=== PATIENT | male | born 1955 | race Caucasian/White ===

== ENCOUNTER 2023-06-01 07:52 | Inpatient (IN) ==
--- NOTE | 2023-06-01 08:12 | Emergency Department Note ---
Impression & Plan CHB (complete heart block), Aspiration pneumonia, Acute respiratory distress, Non-ST elevation CT (NSTEMI), Altered mental state ED Provider Note Diagnosis: Altered mental status, hypoxic respiratory distress, aspiration pneumonia, NSTEMI, complete heart block Disposition: Admission CHIEF COMPLAINT: Found down in person cell HPI: Patient 67-year-old male from local [place] [facility] found facedown in pool of vomit unresponsive. Unknown how long he was in this position. Patient unable to answer questions upon arrival in the emergency room. Patient placed on nonrebreather by EMS IV in place. Patient has ecchymosis to the left flank left mid axillary region. Patient upon review of prior records was here 1 month prior for similar episode found to be in complete heart block and had been refusing pacemaker as well as found to have a pneumothorax and sent for transfer to trauma service at [facility]. Patient has an advanced directive with him today and his paperwork that states he is a DNR/DNI. Patient's advanced directive states that he would not want any procedures performed any blood products given. Patient also listed that he would not want anybody else to make decisions for him. At this point in time with him not able to tell us anything different and with his wishes clearly stated we will uphold these wishes and continue to look for causes that we can treat with IV and with keeping with his medical wishes PAST MEDICAL HISTORY: See Below PAST SURGICAL HISTORY: See Below SOCIAL HISTORY: See Below HOME MEDICATIONS: See Below ALLERGIES: See Below VITALS: See Below PHYSICAL EXAMINATION: GENERAL: Severe distress EYE EXAM: Normal conjunctiva. OROPHARYNX: Moist mucus membranes. Grossly normal dentition. NECK: Supple, LUNGS: Clear to auscultation. Normal chest wall mechanics. HEART: Bradycardia ABDOMEN: Abdomen soft, bruising left mid axillary region ecchymosis present BACK: No step-offs present patient unable to participate in telling me if pain is present on palpation SKIN: Ecchymosis left flank left mid axillary region. UPPER EXTREMITIES: Upper extremities are grossly normal LOWER EXTREMITIES: Grossly normal, no edema. NEURO EXAM: A&O x3,, normal speech, moves all 4 extremities PSYCH: Cooperative MEDICAL DECISION MAKING: Reviewed external documents: Patient's [place] [facility] records and advanced directive History obtained from: EMS ER Course: Patient is a 67-year-old male presenting from [facility] found unresponsive facedown in vomit. Patient alert to painful stimuli but does not speak but moans moves extremities to pain. Patient on nonrebreather at 88%. Patient ordered BiPAP. Patient's advanced directive specifically states no intubation no CPR no procedures no blood products only IV interventions. Patient has been found to be in complete heart block for many years time and has continued to refuse pacemaker. Patient again 1 month ago refused pacemaker on paperwork found by Axel López discharge. At this point in time we will continue IV medications and looking for causes that can be reversed without invasive procedures. Will uphold his wishes at this time. He also stated on his advance directive he did not want anybody else to make decisions for him. Patient had CT scans of head neck chest abdomen pelvis. Patient has no traumatic injuries. Patient found to have aspiration pneumonia on chest CT with healing rib fractures from previous injury 1 month ago. Patient started on Zosyn. Patient found to have an elevated troponin. Patient continues to have complete heart block on EKG with stable blood pressure at this time. Patient was found to be hypoxic and placed on BiPAP tolerating it at this time. Patient continues to have altered mental status. Labs (independently interpreted) are significant for: Leukocytosis, elevated troponin Imaging results (independently interpreted): Opacity right lung field on chest x-ray EKG interpretation (independently interpreted): Complete heart block Medications given: Zosyn, normal saline bolus Consultants: Hospitalist service Triage Nursing notes reviewed and agree them. Vital Signs: reviewed and remarkable for: Hypoxia Critical care: 45 minutes Past Med/Surg History Medical History (Updated 06/01/23 @ 10:22 by Cheko Bolaños DO) CHB (complete heart block) Surgical History (Updated 06/01/23 @ 10:14 by Chantelle Mary PA-C) Hx of chest tube placement Family History Other Family history unobtainable Social History (Updated 06/01/23 @ 10:15 by Chantelle Mary PA-C) Smoking Status: Unknown if ever smoked Hx Alcohol Use: No Hx Substance Use: No Preferred Language: Paragu[place] Current Living Situation: Other Current Living Situation Comment: [place] Feels Safe at Home: Yes Allergies Allergies Allergy/AdvReac Type Severity Reaction Status Date / Time GRAINS Allergy Unknown ON SCI Uncoded 06/01/23 10:14 [facility] Home Meds Home Medications Medication Instructions Recorded Confirmed Therapeutic Tar Shampoo 1 applic topical [id number] 05/02/23 06/01/23 aspirin 81 mg chewable tablet 81 mg PO DAILY 05/02/23 06/01/23 azelastine 137 mcg (0.1 %) nasal 2 spray intranasal DAILY 05/02/23 06/01/23 spray aerosol calcium polycarbophil 625 mg 625 mg PO DAILY 05/02/23 06/01/23 tablet (Fiber-Lax) cholecalciferol (vitamin D3) 25 25 mcg PO DAILY 05/02/23 06/01/23 mcg (1,000 unit) capsule (Vitamin D3) propylene glycol 1 %-glycerin 0.3 1 drp OPB BID 05/02/23 06/01/23 % eye drops (Advanced Eye Relief) saliva stimulant comb. no.3 2 spray mucous membrane TID PRN 05/02/23 06/01/23 (Biotene Moisturizing Mouth Dry Mouth mucosal spray) docusate sodium 250 mg capsule 250 mg PO DAILY 06/01/23 06/01/23 lisinopril 20 mg tablet 20 mg PO DAILY 06/01/23 06/01/23 Results & Data (ED) Vital Signs Vital Signs - 24 hr 06/01/23 08:04 06/01/23 08:20 06/01/23 08:40 Temperature Source Rectal Pulse Rate 48 L 48 L 46 L Pulse Rate from SpO2 Sensor 46 L Pulse Rhythm Regular Regular Pulse Strength Normal Respiratory Rate 40 H 40 H 35 H Respiratory Effort / Characteristics Spontaneous Accessory Muscle Use Retracting Short of Breath Respiratory Depth Retractive Respiratory Pattern Tachypnea Blood Pressure 195/82 H 125/93 Blood Pressure Mean 119 103 Blood Pressure Position Sitting Pulse Oximetry 89 L 91 91 Oxygen Delivery Method Non-rebreather Non-rebreather Non-rebreather Oxygen Flow Rate 15 15 15 Sepsis Recent Fever Within 48 Hours No Sepsis New/Unexplained Change in Mental Status No Sepsis Action Taken by Nursing No Action Required 06/01/23 08:52 06/01/23 09:00 Temperature Source Pulse Rate 44 L 43 L Pulse Rate from SpO2 Sensor 43 L Pulse Rhythm Pulse Strength Respiratory Rate 26 H Respiratory Effort / Characteristics Respiratory Depth Respiratory Pattern Blood Pressure 125/57 L Blood Pressure Mean 79 Blood Pressure Position Pulse Oximetry 95 Oxygen Delivery Method BiPAP Oxygen Flow Rate Sepsis Recent Fever Within 48 Hours Sepsis New/Unexplained Change in Mental Status Sepsis Action Taken by Nursing Laboratory Data 06/01/23 08:04 06/01/23 08:04 Lab Results 06/01/23 06/01/23 Range/Units 08:04 08:08 WBC 20.31 H (4.8-10.8) K/ul RBC 4.91 (4.70-6.10) M/uL Hgb 14.2 (14.0-18.0) g/dl POC Hgb 15.0 (14.0-18.0) g/dl Hct 44.5 (42.0-52.0) % POC Hct 44 (42-52) % MCV 90.6 (80.0-100.0) fL MCH 28.9 (25.0-34.0) pg MCHC 31.9 L (32.0-36.0) g/dL RDW Std Deviation 47.8 H (36.4-46.3) fL RDW Coeff of Scooby 14.3 (11.5-14.5) % Plt Count 453 H (130-400) K/uL MPV 11.2 (9.4-12.4) fL Immature Gran % (Auto) 0.6 % Neut % (Auto) 87.6 % Lymph % (Auto) 4.2 % [place] % (Auto) 7.2 % Eos % (Auto) 0.1 % Baso % (Auto) 0.3 % Neut # (Auto) 17.76 H (1.40-6.50) K/uL Lymph # (Auto) 0.85 L (1.20-3.40) K/uL [place] # (Auto) 1.47 H (0.11-0.59) K/uL Eos # (Auto) 0.03 (0.00-0.50) K/uL Baso # (Auto) 0.07 (0.00-0.20) K/uL Immature Gran # (Auto) 0.13 (0.01-0.20) K/uL PT 11.9 (9.0-12.0) Seconds INR 1.1 (0.9-1.1) POC Sodium 140 (135-144) mmol/L Sodium 137 (136-145) mmol/L POC Potassium 4.4 (3.3-5.0) mmol/L Potassium 4.7 (3.5-5.1) mmol/L POC Chloride 105 (101-112) mmol/L Chloride 104 (98-107) mmol/L Carbon Dioxide 20 L (21-32) mmol/L POC Total CO2 23 L (24-31) mmol/L Anion Gap 13 H (3-11) POC Anion Gap 18.0 (16-25) mmol/L POC BUN 25 H (7-18) mg/dl BUN 26 H (6-23) mg/dl Creatinine 0.79 (0.6-1.4) mg/dl POC Creatinine 0.7 (0.6-1.3) mg/dl Est Cr Clr Drug Dosing Not Reportable Est GFR ( Amer) 106.2 ml/min Est GFR (Non-Af Amer) 91.6 ml/min BUN/Creatinine Ratio 32.9 H (10-20) Glucose 222 H (70-99(Fasting)) mg/dl POC Glucose (other) 215 H (70-99) mg/dl Calcium 9.2 (8.6-10.3) mg/dl POC Ioniz Calcium Margaret 1.16 (1.12-1.32) mmol/l Total Bilirubin 0.5 (0.2-1.0) mg/dl AST 26 (13-39) U/L ALT 21 (7-52) U/L Alkaline Phosphatase 104 (34-104) U/L Troponin I High Sens 300.1 H* (0-20) pg/ml Total Protein 7.6 (6.0-8.3) gm/dl Albumin 3.8 (3.4-5.0) gm/dl Globulin 3.8 (2.5-4.0) gm/dl Albumin/Globulin Ratio 1.0 (0.9-2) Administered Medications Discontinued Medications Sodium Chloride (Nss) 500 mls @ 999 mls/hr IV .Q31M SERGIO Stop: 06/01/23 08:45 Last Infusion: 06/01/23 09:57 Dose: Infused Documented By: Admin: 06/01/23 08:50 Dose: 500 mls/hr Documented By: NOEMI Piperacillin Sod/Tazobactam Sod (Zosyn) 4.5 gm in 100 mls @ 200 mls/hr IV NOW ONE Stop: 06/01/23 09:27 Last Infusion: 06/01/23 09:57 Dose: Infused Documented By: Admin: 06/01/23 09:16 Dose: 200 mls/hr Documented By: NOEMI Ioversol (Optiray 320 500ml) 94 ml IV ONCE ONE Stop: 06/01/23 08:32 Last Admin: 06/01/23 08:31 Dose: 94 ml Documented By: CLAY Imaging Data Radiologist's Impression: Abdomen/Pelvis CT 06/01/23 08:06 CT SCAN OF THE ABDOMEN AND PELVIS WITH IV CONTRAST CLINICAL HISTORY: Trauma. COMPARISON STUDY: Chest CT dated 05/02/2023. TECHNIQUE: Following the IV administration of 94 cc of Optiray 320, CT scan of the abdomen and pelvis is performed from the lung bases to the proximal femora. Images are reviewed in the axial, sagittal, and coronal planes. IV contrast was administered without complication. A dose lowering technique was utilized adhering to the principles of ALARA. The examination is degraded by motion artifact, as well as by streak artifact from the arms which could not be elevated above the abdomen. CT DOSE: 3566.05 mGy.cm FINDINGS: Lung bases: The heart is mildly enlarged and without pericardial effusion. Airspace consolidation is seen throughout the right lung. There is a loculated pleural collection at the left lung base with left basilar consolidation. Liver: The contrast-enhanced liver is normal in size, contour, and attenuation. There is no intrahepatic biliary ductal dilatation. The hepatic veins and portal veins are patent. Gallbladder: Surgically absent noting clips in the gallbladder fossa. Spleen: Normal in size and attenuation. Pancreas: Mildly atrophic and grossly unremarkable. Adrenal glands: Unremarkable. Kidneys: The contrast enhanced kidneys are normal in size and without hydronephrosis. The kidneys enhance symmetrically. Bilateral renal cysts measure up to 4.2 cm. Abdominal vasculature: The abdominal aorta is normal in course and caliber. Bowel: There is rectosigmoid fecal retention and mild to moderate constipation. No bowel obstruction is seen. A nonobstructed segment of the sigmoid colon is contained within a left inguinal hernia. The appendix is not visualized. Peritoneum: There is no intraperitoneal free air or abdominal ascites. Lymphadenopathy: None. Pelvic viscera: The bladder is mildly distended but otherwise normal appearance. The prostate is normal as visualized. There are left larger than right inguinal hernias. The left inguinal hernia contains a nonobstructed segment of bowel in the right inguinal hernia contains a segment of the bladder. Skeletal structures: The skeletal structures are osteopenic. There is moderate lumbosacral spondylosis. Degenerative change is noted in the sacroiliac joints. There is a subacute/healing inferior endplate compression deformity of T10. There are subacute/healing left-sided rib fractures. No lytic or blastic lesions are seen. IMPRESSION: 1. There is no evidence of solid organ injury in the abdomen or pelvis. 2. Airspace consolidation in the right lower lobe is typical for pneumonia/aspiration pneumonitis. Clinical correlation will be required and radiographic follow-up to resolution is recommended. 3. A loculated pleural effusion/collection at the left lung base has decreased in size from 05/02/2023. 4. Bilateral bowel and bladder-containing inguinal hernias as above. 5. Subacute fractures of T10 and the left-sided ribs as above. 6. Additional findings as above. ACT 112: Negative or not required by law. Electronically signed by: Abdullahi Borges M.D. 06/01/2023 9:[address] 06/01/23 08:[address] DOSE: HISTORY: Trauma TECHNIQUE: Multiaxial CT images of the cervical spine were performed and reformatted in the sagittal and coronal plane without the use of contrast. A dose lowering technique was utilized adhering to the principles of ALARA. COMPARISON: Cervical spine CT 05/02/2023. FINDINGS: No fractures. No subluxation. Prevertebral soft tissues and the C1-C2 interval are intact. No pneumothorax. Partial opacification of the right mastoid air cells. Degenerative changes again noted. IMPRESSION: No fractures within the cervical spine. ACT 112: Negative or not required by law. Electronically signed by: Javier Su M.D. 06/01/2023 8:[address] 06/01/23 08:[address] WITH CONTRAST CT DOSE: HISTORY: Trauma TECHNIQUE: Multiaxial CT images of the chest were performed following the intravenous administration of contrast. A dose lowering technique was utilized adhering to the principles of ALARA. COMPARISON: Chest CT 05/02/2023. FINDINGS: Subtle band of sclerosis through the inferior plate of T10 which is new compared to the prior study and likely represents a subacute/healing compression fracture. No significant loss of height at this time. There is a healing nondisplaced left T12 transverse process fracture. There are healing mildly displaced left posterior eighth through 11th rib fractures. No acute fractures identified. There is respiratory motion artifact resulting in suboptimal evaluation. The central airways appear patent. No pneumothorax. No right pleural effusion. There is a partially loculated small left pleural effusion which is decreased in size in the interval. Linear densities within the left lower lobe favor compressive atelectasis from the pleural effusion. There is interlobular septal thickening with patchy airspace opacities within the right lung. This favors a pneumonia and could be due to aspiration. Asymmetric pulmonary edema could also have a similar appearance. Abdominal structures will be reported separately. Normal esophagus. The thyroid gland enhances normally. No lymphadenopathy within the chest. No pericardial effusion. The heart remains enlarged. No evidence for an aortic dissection. The main pulmonary arteries are patent. The ascending thoracic aorta measuring up to 4 cm in diameter. IMPRESSION: 1. Multiple healing left-sided rib fractures and a healing inferior endplate compression fracture at T10. No acute fractures identified. 2. Decrease in size in the partially loculated small left pleural effusion. 3. No pneumothorax. 4. Interval development of interlobular septal thickening and patchy airspace opacities within the right lung. This favors a pneumonia and could be due to aspiration. Asymmetric pulmonary edema could also have a similar appearance. 5. Additional findings as described above. ACT 112: Negative or not required by law. Electronically signed by: Javier Su M.D. 06/01/2023 9:[address] 06/01/23 08:06 CT SCAN OF THE BRAIN WITHOUT IV CONTRAST CLINICAL HISTORY: Trauma. COMPARISON STUDY: CT of the brain dated 05/02/2023. TECHNIQUE: Unenhanced axial CT scan of the brain is performed from the vertex to the skull base. A dose lowering technique was utilized adhering to the principles of ALARA. FINDINGS: Brain parenchyma: There is minimal microangiopathic change. There is no hemorrhage, mass effect, or evidence of acute territorial ischemia by CT criteria. Ba-white matter differentiation is preserved. No extra-axial fluid collection is seen. Ventricles, sulci, cisterns: Normal in configuration. Intracranial vasculature: There is atherosclerotic calcification of the cavernous carotid arteries. Calvarium: There is no depressed calvarial fracture. Sinuses and mastoids: There is trace mucosal thickening in the left sphenoid sinus. The remaining visualized paranasal sinuses are clear. There are right larger than left mastoid effusions. Orbits: The bony orbits are grossly intact. IMPRESSION: There is no hemorrhage, mass effect, or evidence of acute territorial ischemia by CT criteria. ACT 112: Negative or not required by law. Electronically signed by: Abdullahi Borges M.D. 06/01/2023 8:44 AM Chest X-Ray 06/01/23 08:07 XR chest 1V portable HISTORY: Hypoxia COMPARISON: Chest 05/03/2023. FINDINGS: No pneumothorax. The heart is unenlarged. There is interstitial thickening with right patchy airspace opacities. This may represent pulmonary edema or an atypical pneumonia. There is a small left pleural effusion which is increased in size. Left basilar densities again noted. IMPRESSION: 1. Cardiomegaly and a small left pleural effusion. This has slightly increased in size. 2. Interstitial thickening and patchy right lung airspace opacities. This may represent asymmetric pulmonary edema or a pneumonia. ACT 112: Negative or not required by law. Electronically signed by: Javier Su M.D. 06/01/2023 8:36 AM Discharge Plan Visit Data Chief Complaint: Fall Stated Complaint: FALL, HYPOXIA, BRADYCARDIA ED Provider: Cheko Bolaños Discharge Problem: CHB (complete heart block), Aspiration pneumonia, Acute respiratory distress, Non-ST elevation CT (NSTEMI), Altered mental state
[2023-06-01 08:22] LABS: Basophils # (auto) 0.07 K/uL (0.00-0.20); Basophils % (auto) 0.3 %; Eosinophils # (auto) 0.03 K/uL (0.00-0.50); Eosinophils % (auto) 0.1 %; Hematocrit (blood only) 44.5 % (42.0-52.0); Hemoglobin 14.2 g/dl (14.0-18.0); Immature Granulocytes # (auto) 0.13 K/uL (0.01-0.20); Immature Granulocytes % (auto) 0.6 %; Lymphocytes # (auto) 0.85 K/uL (1.20-3.40); Lymphocytes % (auto) 4.2 %; Mean Corpuscular Hemoglobin 28.9 pg (25.0-34.0); Mean Corpuscular Hgb Conc 31.9 g/dL (32.0-36.0); Mean Corpuscular Volume 90.6 fL (80.0-100.0); Mean Platelet Volume 11.2 fL (9.4-12.4); Monocytes # (auto) 1.47 K/uL (0.11-0.59); Monocytes % (auto) 7.2 %; Neutrophils # (auto) 17.76 K/uL (1.40-6.50); Neutrophils % (auto) 87.6 %; Platelet Count 453 K/uL (130-400); RDW Coefficient of Variation 14.3 % (11.5-14.5); RDW Standard Deviation 47.8 fL (36.4-46.3); Red Blood Count 4.91 M/uL (4.70-6.10); White Blood Count 20.31 K/ul (4.8-10.8)
[2023-06-01 08:24] LABS: iSTAT Creatinine 0.7 mg/dl (0.6-1.3); iSTAT Ionized Calcium 1.16 mmol/l (1.12-1.32); iSTAT Potassium 4.4 mmol/L (3.3-5.0)
[2023-06-01] MEDS: OPTIRAY 320 500ml IV ONE (08:31)
--- NOTE | 2023-06-01 08:38 | XRay Report ---
XR chest 1V portable HISTORY: Hypoxia COMPARISON: Chest 05/03/2023. FINDINGS: No pneumothorax. The heart is unenlarged. There is interstitial thickening with right patch y airspace opacities. This may represent pulmonary edema or an atypical pneumonia. There is a small l eft pleural effusion which is increased in size. Left basilar densities again noted. IMPRESSION: 1. Cardiomegaly and a small left pleural effusion. This has slightly increased in size. 2. Interstitial thickening and patchy right lung airspace opacities. This may represent asymmetric pu lmonary edema or a pneumonia. ACT 112: Negative or not required by law. Electronically signed by: Javier Su M.D. 06/01/2023 8:36 AM
[2023-06-01 08:41] LABS: Alanine Aminotransferase 21 U/L (7-52); Albumin Level 3.8 gm/dl (3.4-5.0); Alkaline Phosphatase 104 U/L (34-104); Anion Gap 13 (3-11); Aspartate Aminotransferase 26 U/L (13-39); BUN Creatinine Ratio 32.9 (10-20); Bilirubin,Total 0.5 mg/dl (0.2-1.0); Blood Urea Nitrogen 26 mg/dl (6-23); Calcium 9.2 mg/dl (8.6-10.3); Carbon Dioxide 20 mmol/L (21-32); Chloride 104 mmol/L (98-107); Est GFR (African American) 106.2 ml/min; Est GFR (Non-African American) 91.6 ml/min; Globulin 3.8 gm/dl (2.5-4.0); Glucose 222 mg/dl (70-99(Fasting)); Potassium 4.7 mmol/L (3.5-5.1); Sodium 137 mmol/L (136-145); Total Protein 7.6 gm/dl (6.0-8.3)
--- NOTE | 2023-06-01 08:45 | CT Scan Report ---
CT SCAN OF THE BRAIN WITHOUT IV CONTRAST CLINICAL HISTORY: Trauma. COMPARISON STUDY: CT of the brain dated 05/02/2023. TECHNIQUE: Unenhanced axial CT scan of the brain is performed from the vertex to the skull base. A d ose lowering technique was utilized adhering to the principles of ALARA. FINDINGS: Brain parenchyma: There is minimal microangiopathic change. There is no hemorrhage, mass effect, or e vidence of acute territorial ischemia by CT criteria. Ba-white matter differentiation is preserved. No extra-axial fluid collection is seen. Ventricles, sulci, cisterns: Normal in configuration. Intracranial vasculature: There is atherosclerotic calcification of the cavernous carotid arteries. Calvarium: There is no depressed calvarial fracture. Sinuses and mastoids: There is trace mucosal thickening in the left sphenoid sinus. The remaining vis ualized paranasal sinuses are clear. There are right larger than left mastoid effusions. Orbits: The bony orbits are grossly intact. IMPRESSION: There is no hemorrhage, mass effect, or evidence of acute territorial ischemia by CT rahul jimenez. ACT 112: Negative or not required by law. Electronically signed by: Abdullahi Borges M.D. 06/01/2023 8:44 AM
--- NOTE | 2023-06-01 08:49 | CT Scan Report ---
CERVICAL SPINE CT CT DOSE: HISTORY: Trauma TECHNIQUE: Multiaxial CT images of the cervical spine were performed and reformatted in the sagittal and coronal plane without the use of contrast. A dose lowering technique was utilized adhering to th e principles of ALARA. COMPARISON: Cervical spine CT 05/02/2023. FINDINGS: No fractures. No subluxation. Prevertebral soft tissues and the C1-C2 interval are intact. No pneumothorax. Partial opacification of the right mastoid air cells. Degenerative changes again not ed. IMPRESSION: No fractures within the cervical spine. ACT 112: Negative or not required by law. Electronically signed by: Javier Su M.D. 06/01/2023 8:48 AM
[2023-06-01] MEDS: SODIUM CHLORIDE 0.9% 500 ML IV SCH (08:50)
[2023-06-01 08:51] LABS: INR 1.1 (0.9-1.1); Prothrombin Time 11.9 Seconds (9.0-12.0)
--- NOTE | 2023-06-01 09:03 | CT Scan Report ---
CHEST CT WITH CONTRAST CT DOSE: HISTORY: Trauma TECHNIQUE: Multiaxial CT images of the chest were performed following the intravenous administration of contrast. A dose lowering technique was utilized adhering to the principles of ALARA. COMPARISON: Chest CT 05/02/2023. FINDINGS: Subtle band of sclerosis through the inferior plate of T10 which is new compared to the hong or study and likely represents a subacute/healing compression fracture. No significant loss of height at this time. There is a healing nondisplaced left T12 transverse process fracture. There are healin g mildly displaced left posterior eighth through 11th rib fractures. No acute fractures identified. T here is respiratory motion artifact resulting in suboptimal evaluation. The central airways appear pa tent. No pneumothorax. No right pleural effusion. There is a partially loculated small left pleural e ffusion which is decreased in size in the interval. Linear densities within the left lower lobe favor compressive atelectasis from the pleural effusion. There is interlobular septal thickening with patc hy airspace opacities within the right lung. This favors a pneumonia and could be due to aspiration. Asymmetric pulmonary edema could also have a similar appearance. Abdominal structures will be reporte d separately. Normal esophagus. The thyroid gland enhances normally. No lymphadenopathy within the ch est. No pericardial effusion. The heart remains enlarged. No evidence for an aortic dissection. The m ain pulmonary arteries are patent. The ascending thoracic aorta measuring up to 4 cm in diameter. IMPRESSION: 1. Multiple healing left-sided rib fractures and a healing inferior endplate compression fracture at T10. No acute fractures identified. 2. Decrease in size in the partially loculated small left pleural effusion. 3. No pneumothorax. 4. Interval development of interlobular septal thickening and patchy airspace opacities within the ri ght lung. This favors a pneumonia and could be due to aspiration. Asymmetric pulmonary edema could al so have a similar appearance. 5. Additional findings as described above. ACT 112: Negative or not required by law. Electronically signed by: Javier Su M.D. 06/01/2023 9:01 AM
[2023-06-01] MEDS: PIPERACILLIN/TAZOBACTAM 4.5 GM/100 ML BAG IV ONE (09:16)
--- NOTE | 2023-06-01 09:16 | CT Scan Report ---
CT SCAN OF THE ABDOMEN AND PELVIS WITH IV CONTRAST CLINICAL HISTORY: Trauma. COMPARISON STUDY: Chest CT dated 05/02/2023. TECHNIQUE: Following the IV administration of 94 cc of Optiray 320, CT scan of the abdomen and pelvi s is performed from the lung bases to the proximal femora. Images are reviewed in the axial, sagittal , and coronal planes. IV contrast was administered without complication. A dose lowering technique wa s utilized adhering to the principles of ALARA. The examination is degraded by motion artifact, as we ll as by streak artifact from the arms which could not be elevated above the abdomen. CT DOSE: 3566.05 mGy.cm FINDINGS: Lung bases: The heart is mildly enlarged and without pericardial effusion. Airspace consolidation is seen throughout the right lung. There is a loculated pleural collection at the left lung base with le ft basilar consolidation. Liver: The contrast-enhanced liver is normal in size, contour, and attenuation. There is no intrahepa tic biliary ductal dilatation. The hepatic veins and portal veins are patent. Gallbladder: Surgically absent noting clips in the gallbladder fossa. Spleen: Normal in size and attenuation. Pancreas: Mildly atrophic and grossly unremarkable. Adrenal glands: Unremarkable. Kidneys: The contrast enhanced kidneys are normal in size and without hydronephrosis. The kidneys enh ance symmetrically. Bilateral renal cysts measure up to 4.2 cm. Abdominal vasculature: The abdominal aorta is normal in course and caliber. Bowel: There is rectosigmoid fecal retention and mild to moderate constipation. No bowel obstruction is seen. A nonobstructed segment of the sigmoid colon is contained within a left inguinal hernia. The appendix is not visualized. Peritoneum: There is no intraperitoneal free air or abdominal ascites. Lymphadenopathy: None. Pelvic viscera: The bladder is mildly distended but otherwise normal appearance. The prostate is norm al as visualized. There are left larger than right inguinal hernias. The left inguinal hernia contain s a nonobstructed segment of bowel in the right inguinal hernia contains a segment of the bladder. Skeletal structures: The skeletal structures are osteopenic. There is moderate lumbosacral spondylosi s. Degenerative change is noted in the sacroiliac joints. There is a subacute/healing inferior endpla te compression deformity of T10. There are subacute/healing left-sided rib fractures. No lytic or janette stic lesions are seen. IMPRESSION: 1. There is no evidence of solid organ injury in the abdomen or pelvis. 2. Airspace consolidation in the right lower lobe is typical for pneumonia/aspiration pneumonitis. Cl inical correlation will be required and radiographic follow-up to resolution is recommended. 3. A loculated pleural effusion/collection at the left lung base has decreased in size from 05/02/2023 . 4. Bilateral bowel and bladder-containing inguinal hernias as above. 5. Subacute fractures of T10 and the left-sided ribs as above. 6. Additional findings as above. ACT 112: Negative or not required by law. Electronically signed by: Abdullahi Borges M.D. 06/01/2023 9:14 AM
[2023-06-01 09:17] LABS: Troponin I High Sensitivity 300.1 pg/ml (0-20)
[2023-06-01] MEDS ORDERED: CARBOHYDRATES FOR HYPOGLYCEMIA PO PRN (10:22)
[2023-06-01] MEDS ORDERED: DEXTROSE 50% 50 ML SYRINGE IV PRN (10:22)
[2023-06-01] MEDS ORDERED: GLUCOSE 40% GEL 15 GM TUBE PO PRN (10:22)
[2023-06-01] MEDS ORDERED: GLUCOSE 10 TAB/TUBE PO PRN (10:22)
[2023-06-01] MEDS ORDERED: GLUCAGON FOR INJ 1 MG VIAL SQ PRN (10:22)
[2023-06-01] MEDS ORDERED: ONDANSETRON INJ 2 MG/ML 2 ML VIAL IV PRN (10:22)
--- NOTE | 2023-06-01 10:31 | History & Physical Report ---
Date of Service June 01, 2023 Assessment & Plan (1) Acute hypoxic respiratory failure: (2) Sepsis: (3) Aspiration pneumonia: (4) Metabolic encephalopathy: (5) Hyperglycemia: (6) Elevated troponin: (7) DNI (do not intubate): Plan 67 yr old incarcerated male being managed for the following: Acute hypoxic respiratory failure Sepsis Aspiration Pneumonia Metabolic encephalopathy admit to PCU continue IV Zosyn BIPAP for respiratory support, pt DNR/DNI will consult palliative to assist with goals of care IVF LR 100cc/hr will keep NPO until pt would become more alert aspiration precautions NSTEMI repeat @ 2hrs is 731.4, initially 300 will cycle q6 pt does not report CP likely demand in setting of sepsis, resp failure will repeat ecg, obtain echo, consult cardiology start IV heparin, pt does not want any life saving procedures per advanced directive appreciate palliative input regarding role of heparin in setting of his advance directives, will continue for now until able to communicate with patient Hyperglycemia admitting bsg in 200s no hx of t2dm recorded obtain a1c in a.m. will monitor accuchecks ac/hs for now, will not implement sliding scale at this time unless consistently elevated DNR/DNI pt presents with specific advance directive stating DNR/DNI ok with IV fluids/antibiotics He is the only one able to make decisions currently not able to make appropriate decisions, will carry out his wishes with DNI consult palliative care Complete Heart Block pt with known heart block presents with syncope in past, declines PPM recently eval by cards at [facility], declined will monitor on tele at this time pt does not wish for life saving medications per custodial records appears pt is on lisinopril - will hold DVT ppx: Heparin IV DNR/DNI Dispo: admit to PCU Pt was seen and examined in collaboration with Dr. Willis, please see addendum A total of 76 minutes was spent coordinating, documenting, and providing care for this patient excluding time spent in the performance of separately billed services. This included personally viewing all current laboratories and imaging studies, medication reconciliation, outpatient chart review, and discussion with specialists. History of Present Illness Chief Complaint: Unresponsive prior to arrival Primary Care Provider: ZOILA Toro This is a 67 yr old incarcerated M who presents to ED after being found unresponsive at custodial surrounded by pool of vomit. Hx obtained from pre hospital paperwork and ED provider. Of significance pt recently hospitaled 05/02 at [facility] after being initially evaluated at [facility] 2/2 syncope, fall, L rib fractures, L hemothorax s/p chest tube placement. He was seen in [facility] and remained stable. CT was removed prior to d/c. He has a known CHB that he has refused PPM. This was evident from hospital discharge paperwork from [facility] as he refused a pacer at that time. Pt has specific advanced directive in paperwork stating he is a DNR/DNI and he does not want any mechanical ventilation/procedure/tube feeds. He is ok with IVF and IV antibiotics. When he presented to ED today he was unresponsive and significant hypoxic despite non rebreather. A bipap was placed. Imaging concerning for an aspiration pneumonia. He was started on IV Zosyn and IVF. At beside pt was able to open eyes and answer simple questions. He states he passed out which caused him to fall. This is why he presented to ED previously in setting of syncope. ROS otherwise unobtainable. Nursing reports kiley abnormality to L tibial surface. Guards at bedside unable to provide any additional information. Allergies Allergy/AdvReac Type Severity Reaction Status Date / Time GRAINS Allergy Unknown ON SCI Uncoded 06/01/23 10:14 [facility] [employer] LIST Home Medications Medication Instructions Recorded Confirmed Type Therapeutic Tar Shampoo 1 applic topical [id number] 05/02/23 06/01/23 History aspirin 81 mg chewable tablet 81 mg PO DAILY 05/02/23 06/01/23 History azelastine 137 mcg (0.1 %) nasal 2 spray intranasal DAILY 05/02/23 06/01/23 History spray aerosol calcium polycarbophil 625 mg 625 mg PO DAILY 05/02/23 06/01/23 History tablet (Fiber-Lax) cholecalciferol (vitamin D3) 25 25 mcg PO DAILY 05/02/23 06/01/23 History mcg (1,000 unit) capsule (Vitamin D3) propylene glycol 1 %-glycerin 0.3 1 drp OPB BID 05/02/23 06/01/23 History % eye drops (Advanced Eye Relief) saliva stimulant comb. no.3 2 spray mucous membrane TID PRN 05/02/23 06/01/23 History (Biotene Moisturizing Mouth Dry Mouth mucosal spray) docusate sodium 250 mg capsule 250 mg PO DAILY 06/01/23 06/01/23 History lisinopril 20 mg tablet 20 mg PO DAILY 06/01/23 06/01/23 History Past Med/Surg History Medical History (Updated 06/01/23 @ 18:53 by Marcia Monson DNP) Encounter for end of life care Palliative care by specialist Advanced care planning/counseling discussion Weakness generalized Anxiety about dying Dyspnea and respiratory abnormalities CHB (complete heart block) Surgical History Hx of chest tube placement Family History Other Family history unobtainable Social History (Updated 06/01/23 @ 10:15 by Chantelle Mary PA-C) Smoking Status: Unknown if ever smoked Hx Alcohol Use: No Hx Substance Use: No Preferred Language: Lithuanian Communication Ability: Effective 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 Willis addendum for physical exam findings Results & Data Results & Data Vital Signs (Past 12 Hours) Vital Signs Pulse Resp BP Pulse Ox O2 Del Method O2 Flow Rate 06/01/23 09:00 43 L 26 H 125/57 L 95 BiPAP 06/01/23 08:52 44 L 06/01/23 08:40 46 L 35 H 125/93 91 Non-rebreather 15 06/01/23 08:20 48 L 40 H 91 Non-rebreather 15 06/01/23 08:04 48 L 40 H 195/82 H 89 L Non-rebreather 15 Diagnostic Findings Abdomen/Pelvis CT 06/01/23 08:06 CT SCAN OF THE ABDOMEN AND PELVIS WITH IV CONTRAST CLINICAL HISTORY: Trauma. COMPARISON STUDY: Chest CT dated 05/02/2023. TECHNIQUE: Following the IV administration of 94 cc of Optiray 320, CT scan of the abdomen and pelvis is performed from the lung bases to the proximal femora. Images are reviewed in the axial, sagittal, and coronal planes. IV contrast was administered without complication. A dose lowering technique was utilized adhering to the principles of ALARA. The examination is degraded by motion artifact, as well as by streak artifact from the arms which could not be elevated above the abdomen. CT DOSE: 3566.05 mGy.cm FINDINGS: Lung bases: The heart is mildly enlarged and without pericardial effusion. Airspace consolidation is seen throughout the right lung. There is a loculated pleural collection at the left lung base with left basilar consolidation. Liver: The contrast-enhanced liver is normal in size, contour, and attenuation. There is no intrahepatic biliary ductal dilatation. The hepatic veins and portal veins are patent. Gallbladder: Surgically absent noting clips in the gallbladder fossa. Spleen: Normal in size and attenuation. Pancreas: Mildly atrophic and grossly unremarkable. Adrenal glands: Unremarkable. Kidneys: The contrast enhanced kidneys are normal in size and without hydronephrosis. The kidneys enhance symmetrically. Bilateral renal cysts measure up to 4.2 cm. Abdominal vasculature: The abdominal aorta is normal in course and caliber. Bowel: There is rectosigmoid fecal retention and mild to moderate constipation. No bowel obstruction is seen. A nonobstructed segment of the sigmoid colon is contained within a left inguinal hernia. The appendix is not visualized. Peritoneum: There is no intraperitoneal free air or abdominal ascites. Lymphadenopathy: None. Pelvic viscera: The bladder is mildly distended but otherwise normal appearance. The prostate is normal as visualized. There are left larger than right inguinal hernias. The left inguinal hernia contains a nonobstructed segment of bowel in the right inguinal hernia contains a segment of the bladder. Skeletal structures: The skeletal structures are osteopenic. There is moderate lumbosacral spondylosis. Degenerative change is noted in the sacroiliac joints. There is a subacute/healing inferior endplate compression deformity of T10. There are subacute/healing left-sided rib fractures. No lytic or blastic lesions are seen. IMPRESSION: 1. There is no evidence of solid organ injury in the abdomen or pelvis. 2. Airspace consolidation in the right lower lobe is typical for pneumonia/aspiration pneumonitis. Clinical correlation will be required and radiographic follow-up to resolution is recommended. 3. A loculated pleural effusion/collection at the left lung base has decreased in size from 05/02/2023. 4. Bilateral bowel and bladder-containing inguinal hernias as above. 5. Subacute fractures of T10 and the left-sided ribs as above. 6. Additional findings as above. ACT 112: Negative or not required by law. Electronically signed by: Abdullahi Borges M.D. 06/01/2023 9:[address] 06/01/23 08:[address] DOSE: HISTORY: Trauma TECHNIQUE: Multiaxial CT images of the cervical spine were performed and reformatted in the sagittal and coronal plane without the use of contrast. A dose lowering technique was utilized adhering to the principles of ALARA. COMPARISON: Cervical spine CT 05/02/2023. FINDINGS: No fractures. No subluxation. Prevertebral soft tissues and the C1-C2 interval are intact. No pneumothorax. Partial opacification of the right mastoid air cells. Degenerative changes again noted. IMPRESSION: No fractures within the cervical spine. ACT 112: Negative or not required by law. Electronically signed by: Javier Su M.D. 06/01/2023 8:[address] 06/01/23 08:[address] WITH CONTRAST CT DOSE: HISTORY: Trauma TECHNIQUE: Multiaxial CT images of the chest were performed following the intravenous administration of contrast. A dose lowering technique was utilized adhering to the principles of ALARA. COMPARISON: Chest CT 05/02/2023. FINDINGS: Subtle band of sclerosis through the inferior plate of T10 which is new compared to the prior study and likely represents a subacute/healing compression fracture. No significant loss of height at this time. There is a healing nondisplaced left T12 transverse process fracture. There are healing mildly displaced left posterior eighth through 11th rib fractures. No acute fractures identified. There is respiratory motion artifact resulting in suboptimal evaluation. The central airways appear patent. No pneumothorax. No right pleural effusion. There is a partially loculated small left pleural effusion which is decreased in size in the interval. Linear densities within the left lower lobe favor compressive atelectasis from the pleural effusion. There is interlobular septal thickening with patchy airspace opacities within the right lung. This favors a pneumonia and could be due to aspiration. Asymmetric pulmonary edema could also have a similar appearance. Abdominal structures will be reported separately. Normal esophagus. The thyroid gland enhances normally. No lymphadenopathy within the chest. No pericardial effusion. The heart remains enlarged. No evidence for an aortic dissection. The main pulmonary arteries are patent. The ascending thoracic aorta measuring up to 4 cm in diameter. IMPRESSION: 1. Multiple healing left-sided rib fractures and a healing inferior endplate compression fracture at T10. No acute fractures identified. 2. Decrease in size in the partially loculated small left pleural effusion. 3. No pneumothorax. 4. Interval development of interlobular septal thickening and patchy airspace opacities within the right lung. This favors a pneumonia and could be due to aspiration. Asymmetric pulmonary edema could also have a similar appearance. 5. Additional findings as described above. ACT 112: Negative or not required by law. Electronically signed by: Javier Su M.D. 06/01/2023 9:[address] 06/01/23 08:06 CT SCAN OF THE BRAIN WITHOUT IV CONTRAST CLINICAL HISTORY: Trauma. COMPARISON STUDY: CT of the brain dated 05/02/2023. TECHNIQUE: Unenhanced axial CT scan of the brain is performed from the vertex to the skull base. A dose lowering technique was utilized adhering to the principles of ALARA. FINDINGS: Brain parenchyma: There is minimal microangiopathic change. There is no hemorrhage, mass effect, or evidence of acute territorial ischemia by CT criteria. Ba-white matter differentiation is preserved. No extra-axial fluid collection is seen. Ventricles, sulci, cisterns: Normal in configuration. Intracranial vasculature: There is atherosclerotic calcification of the cavernous carotid arteries. Calvarium: There is no depressed calvarial fracture. Sinuses and mastoids: There is trace mucosal thickening in the left sphenoid sinus. The remaining visualized paranasal sinuses are clear. There are right larger than left mastoid effusions. Orbits: The bony orbits are grossly intact. IMPRESSION: There is no hemorrhage, mass effect, or evidence of acute territorial ischemia by CT criteria. ACT 112: Negative or not required by law. Electronically signed by: Abdullahi Borges M.D. 06/01/2023 8:44 AM Chest X-Ray 06/01/23 08:07 XR chest 1V portable HISTORY: Hypoxia COMPARISON: Chest 05/03/2023. FINDINGS: No pneumothorax. The heart is unenlarged. There is interstitial thickening with right patchy airspace opacities. This may represent pulmonary edema or an atypical pneumonia. There is a small left pleural effusion which is increased in size. Left basilar densities again noted. IMPRESSION: 1. Cardiomegaly and a small left pleural effusion. This has slightly increased in size. 2. Interstitial thickening and patchy right lung airspace opacities. This may represent asymmetric pulmonary edema or a pneumonia. ACT 112: Negative or not required by law. Electronically signed by: Javier Su M.D. 06/01/2023 8:36 AM Medications Administered Medication List Discontinued Medications Sodium Chloride (Nss) 500 mls @ 999 mls/hr IV .Q31M SERGIO Stop: 06/01/23 08:45 Last Infusion: 06/01/23 09:57 Dose: Infused Documented By: Admin: 06/01/23 08:50 Dose: 500 mls/hr Documented By: NOEMI Piperacillin Sod/Tazobactam Sod (Zosyn) 4.5 gm in 100 mls @ 200 mls/hr IV NOW ONE Stop: 06/01/23 09:27 Last Infusion: 06/01/23 09:57 Dose: Infused Documented By: Admin: 06/01/23 09:16 Dose: 200 mls/hr Documented By: NOEMI Ioversol (Optiray 320 500ml) 94 ml IV ONCE ONE Stop: 06/01/23 08:32 Last Admin: 06/01/23 08:31 Dose: 94 ml Documented By: CLAY ECG Rate (beats per minute): 50 Additional Comments: I have independently reviewed and interpreted patient's admitting EKG which revealed: 50 bpm, chb, wide qrs complex, RBBB COVID-19 Results Results COVID-19 Adm Lab Results: RBC 4.91 M/uL (4.70-6.10) 06/01/23 WBC 20.31 K/ul (4.8-10.8) H 06/01/23 Hgb 14.2 g/dl (14.0-18.0) 06/01/23 Hct 44.5 % (42.0-52.0) 06/01/23 Plt Count 453 K/uL (130-400) H 06/01/23 Neutrophils (%) (Auto) 87.6 % 06/01/23 Lymphocytes (%) (Auto) 4.2 % 06/01/23 Monocytes # (Auto) 1.47 K/uL (0.11-0.59) H 06/01/23 Eosinophils # (Auto) 0.03 K/uL (0.00-0.50) 06/01/23 Immature Granulocyte % (Auto) 0.6 % 06/01/23 Neutrophils # (Auto) 17.76 K/uL (1.40-6.50) H 06/01/23 Lymphocytes # (Auto) 0.85 K/uL (1.20-3.40) L 06/01/23 Monocytes # (Auto) 1.47 K/uL (0.11-0.59) H 06/01/23 Eosinophils # (Auto) 0.03 K/uL (0.00-0.50) 06/01/23 Basophils # (Auto) 0.07 K/uL (0.00-0.20) 06/01/23 Immature Granulocyte # (Auto) 0.13 K/uL (0.01-0.20) 4 Na 137 mmol/L (136-145) 06/01/23 K 4.7 mmol/L (3.5-5.1) 06/01/23 Cl 104 mmol/L (98-107) 06/01/23 CO2 20 mmol/L (21-32) L 06/01/23 Anion Gap 13 (3-11) H 06/01/23 BUN 26 mg/dl (6-23) H 06/01/23 Creatinine 0.79 mg/dl (0.6-1.4) 06/01/23 BUN/Creatinine Ratio 32.9 (10-20) H 06/01/23 Glucose Level 222 mg/dl (70-99(Fasting)) H 06/01/23 Ca 9.2 mg/dl (8.6-10.3) 06/01/23 Total Bilirubin 0.5 mg/dl (0.2-1.0) 06/01/23 AST/SGOT 26 U/L (13-39) 06/01/23 ALT/SGPT 21 U/L (7-52) 06/01/23 Alkaline Phosphatase 104 U/L (34-104) 06/01/23 Total Protein 7.6 gm/dl (6.0-8.3) 06/01/23 Albumin 3.8 gm/dl (3.4-5.0) 06/01/23 Globulin 3.8 gm/dl (2.5-4.0) 06/01/23 Albumin/Globulin Ratio 1.0 (0.9-2) 06/01/23 INR 1.1 (0.9-1.1) 06/01/[address] 06/01/23 Chest X-Ray 06/01/23 Code Status & VTE Plan Code Status DNR/DNI - IVF/ IV antibiotics only VTE Prophylaxis Plan VTE Prophylaxis will be ordered: Yes Supervising Physician Co-Signing Physician Notes Attending addendum; The patient was seen and examined in the emergency room He was brought in with syncopal episode Has complete heart block and he did not want that to be treated On examination Lying in bed comfortably on BiPAP Hemodynamically stable with bradycardia Chest-decreased breath sound bilaterally with bibasilar crackles Heart-S1-S2 with bradycardia Abdomen-benign -Extremities-trace edema bilaterally His admission labs, EKG and imaging studies reviewed Has complete heart block and the patient does not want to be treated Respiratory failure with aspiration continue BiPAP for now Palliative care consulted DNR/DNI and the patient was converted to comfort care Agree with assessment plan as outlined above by Khushi Willis
[2023-06-01] MEDS ORDERED: Heparin IV Adult Wt-Based Standard *NO* INITIAL Bolus Protocol IV STA (10:43)
[2023-06-01] MEDS ORDERED: Patient's HEIGHT &/or WEIGHT Needed STA (10:46)
--- NOTE | 2023-06-01 10:52 | XRay Report ---
XR tibia fibula LT 2V CLINICAL HISTORY: fall, bony abnormality COMPARISON STUDY: None. FINDINGS: There are old, healed mid shaft fractures within the left tibia and fibula. No acute fractu res identified. No dislocation. Small amount of superficial calcification within the mid lateral lowe r leg may be due to old trauma. Otherwise, no radiopaque foreign bodies. IMPRESSION: Old, healed fractures within the left lower leg. No acute fractures identified. ACT 112: Negative or not required by law. Electronically signed by: Javier Su M.D. 06/01/2023 10:50 AM
--- NOTE | 2023-06-01 11:49 | Palliative Care Consultation ---
Date of Consultation June 01, 2023 Assessment & Plan (1) Dyspnea and respiratory abnormalities: complete heart block found down with ?aspiration, unresponsive on arrival now on BIPAP, fully awake and alert - asking for bipap to removed desires no aggressive care, reaffirms no code (2) Anxiety about dying: is clear he does not fear but wants to be assured of comfort, has some worry about what it might feel like with heart block but wants to naturally, no aggressive care or interventions (3) Weakness generalized: (4) Advanced care planning/counseling discussion: Met with pt face to face at bedside x 30min for ACP with his consent and voluntary participation we discussed the current situation and medical concerns he very appropriately outlined his medical issues - heart block, has been told he needs pacer but did not want, does not want even now, does not want treatment for heart issues and wants to allow natural . is aware time is limited and seeks for that time to be more comfortable specifically addressed heparin which he states he does not want and he also wants bipap removed he does want comfort care he wants to take PO as tolerated and without restriction Mr Perez tells me he has not wanted aggressive care or interventions to temporize his medical issues, completed AD in 2017 which we reviewed today. He reaffirms no code He does not want IV heparin, nor does he want Abtx at this junction given terminal issues with heart and not desiring interventional options He does not want BiPAP He does want comfort meds and liberal diet for comfort He does not want CARROLL He3 does NOT want anyone else making decisions for him and does not have anyone he wishes to name as SDM. He feels his wishes are very clear, he documented them in AD and has been consistently consistent in decisions that support his preferences and care that aligns with his goals for himself namely those of comfort and QOL. (5) Palliative care by specialist: Met with pt. Provided overview of Palliative Medicine, a subspecialty that provides specialized medical care for people living with a serious illness by offering a focus on quality of life. Palliative Medicine is often conflated with hospice: I advised patient/family that Palliative and hospice can be partners but we are not the same. It is important to understand the difference so that we may be informed, and not afraid. Palliative Medicine works to improve QOL through reduction of symptom burden/more control over their illness, for both the patient and family. Palliative medicine clinicians are board certified, specially-trained and another member of the patient's medical care team. We often provide an extra layer of support because our care is based on the needs of the patient, not the prognosis; as such, it's appropriate at any age/advancing stage of a serious illness and can be provided along with curative treatment. Palliative Medicine clinicians are also trained in advanced communication methodologies, to facilitate complex discussions about advanced illness planning, which are needed to help assure that the treatment choices match the patient's goals, aka delivering Goal Concordant care. Finally, we discussed that hospice is a visiting nurse service that focuses on care delivered at the very end of life for patients with terminal illness, with life expectancy less than 6 month. 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 Please don't hesitate to call or page with any additional concerns. Dr. Marcia Monson DNP Director, Palliative Care History of Present Illness Reason for Consultation: assist with Adv directives Attending Physician: Yane Willis MD History of Present Illness 67yo [facility] SCI inmate admitted with recurrent complete heart block and asp PNA withr elaina distress s/p fall with +AMS +NSTEMI per report, found down in cell at SCI, +vomit unknown duration of downtime ecchymoses to left flank and left mid axillary region noted in ED was here about a month ago for similar issues, found to be in complete heart block and refused apcer. At that time had developed PTX and was transferred to [facility]. Of concern today is: "Patient has an advanced directive with him today and his paperwork that states he is a DNR/DNI. Patient's advanced directive states that he would not want any procedures performed any blood products given. Patient also listed that he would not want anybody else to make decisions for him. At this point in time with him not able to tell us anything different and with his wishes clearly stated we will uphold these wishes and continue to look for causes that we can treat with IV and with keeping with his medical wishes" At the time of my visit pt is awake and alert on BiPAP. He is guarded by two officers He is on a heparin gtt He is weak but able to follow commands he admits to chest tightness and dyspnea along with weakness, fatigue and dry cough he has generalized discomfort mild intermittent nausea appetite diminishing not very active Allergies Allergy/AdvReac Type Severity Reaction Status Date / Time GRAINS Allergy Unknown ON SCI Uncoded 06/01/23 10:14 [facility] Home Medications Medication Instructions Recorded Confirmed Type Therapeutic Tar Shampoo 1 applic topical 3XWK 05/02/23 06/01/23 History aspirin 81 mg chewable tablet 81 mg PO DAILY 05/02/23 06/01/23 History azelastine 137 mcg (0.1 %) nasal 2 spray intranasal DAILY 05/02/23 06/01/23 History spray aerosol calcium polycarbophil 625 mg 625 mg PO DAILY 05/02/23 06/01/23 History tablet (Fiber-Lax) cholecalciferol (vitamin D3) 25 25 mcg PO DAILY 05/02/23 06/01/23 History mcg (1,000 unit) capsule (Vitamin D3) propylene glycol 1 %-glycerin 0.3 1 drp OPB BID 05/02/23 06/01/23 History % eye drops (Advanced Eye Relief) saliva stimulant comb. no.3 2 spray mucous membrane TID PRN 05/02/23 06/01/23 History (Biotene Moisturizing Mouth Dry Mouth mucosal spray) docusate sodium 250 mg capsule 250 mg PO DAILY 06/01/23 06/01/23 History lisinopril 20 mg tablet 20 mg PO DAILY 06/01/23 06/01/23 History Patient History Medical History (Updated 06/01/23 @ 18:53 by Marcia Monson DNP) Encounter for end of life care Palliative care by specialist Advanced care planning/counseling discussion Weakness generalized Anxiety about dying Dyspnea and respiratory abnormalities CHB (complete heart block) Surgical History Hx of chest tube placement Family History Other Family history unobtainable Social History (Updated 06/01/23 @ 10:15 by Chantelle Mary PA-C) Smoking Status: Unknown if ever smoked Hx Alcohol Use: No Hx Substance Use: No Preferred Language: Polish Communication Ability: Effective 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 Beliefs That Will Affect Care: None Current Living Situation: Other Current Living Situation Comment: [facility] Feels Safe at Home: Yes Safety Concerns: Feels Safe At This Time Assistive Devices: None Review of Systems Review of Systems: All systems reviewed & are unremarkable except as noted in Subjective Physical Exam Physical Exam: appears older than stated age awake and alert on BiPAP Bitemp wasting perrla, eomi's pharynx pink, dentition poor neck supple, no stridor resp effort mildly increased, mild conversational dyspnea, use of accessory muscles decreased with BiPAP s1s2, tachy, no gross JVD apical pulse and radial pulse in sync abd softly distended, non tender, BS+ mild edema BUE Trace edema BLE skin pale, cool to touch AAOx3 [facility]ICU Negative Results & Data Vital Signs (Past 12 Hours) Vital Signs Pulse Resp BP Pulse Ox O2 Del Method O2 Flow Rate FiO2 06/01/23 10:48 48 L 20 98 50 06/01/23 09:00 43 L 26 H 125/57 L 95 BiPAP 06/01/23 08:52 44 L 06/01/23 08:45 44 L 26 H 94 60 06/01/23 08:40 46 L 35 H 125/93 91 Non-rebreather 15 06/01/23 08:20 48 L 40 H 91 Non-rebreather 15 06/01/23 08:04 48 L 40 H 195/82 H 89 L Non-rebreather 15 Laboratory Results data reviewed Diagnostic Findings data reviewed PG Care Time/CCT Total # of Minutes Spent Total Time Spent: 95 Total Time Spent with Patient: Total time spent is greater than 50% in coordination of care (as documented) at patient's floor/unit and/or counseling patient: I spent 95 minutes overall addressing this case: 20 min in medical data review/discussion with referring provide r(s) and/or preparation for the visit including OSH data review 20 min in direct interaction with the patient/exam 30 min in Advance Care Planning/Goals of Care discussions as detailed above in note (must be >16min) 10 min in subsequent review and synthesis of assessment and plan 15 min communicating with other providers regarding the patient's case: Advanced Care Planning 97660 Advanced Care Planning 30 [place] [address] IN/OBS CONSULT LVL 4,60M Patient Type New History Comprehensive Exam Comprehensive Medical Decision Making High Complexity Diagnoses Dyspnea and respiratory abnormalities R06.00; R06.89 Anxiety about dying R45.89 Weakness generalized R53.1 Advanced care planning/counseling discussion Z71.89 Palliative care by specialist Z51.5 Encounter for end of life care Z51.5 Additional Codes Advanced Care Planning - 75406 Advanced Care Planning 30 Min: 33804 Advanced Care Planning 30 Min ([id number])
[2023-06-01] MEDS: LACTATED RINGER'S 1,000 ML IV SCH (11:59)
[2023-06-01] MEDS: HEPARIN SODIUM/DEXTROSE 25,000 UNITS/500 ML BAG IV SCH (12:00)
[2023-06-01] MEDS ORDERED: GLYCOPYRROLATE 0.2 MG/ML VIAL IV PRN (13:20)
[2023-06-01] MEDS ORDERED: LORazepam 1 MG in SYRINGE 0.5 ML IV PRN (13:30)
[2023-06-01] MEDS ORDERED: LORazepam 0.5 MG in SYRINGE 0.25 ML IV PRN (13:30)
[2023-06-01] MEDS ORDERED: PIPERACILLIN/TAZOBACTAM 4.5 GM in DEXTROSE 5% MINI-B 100 ML IV SCH (15:00)
[2023-06-01 15:19] VITALS: BP 129/63; PULSE 45; RESP 22; O2SAT 95
[2023-06-01] MEDS: MoRPHine SULFATE 2 MG/ML CARP IV PRN (19:46)
[2023-06-01] MEDS ORDERED: ENOXAPARIN INJ 40 MG/0.4 ML SYR SQ SCH (21:00)
--- NOTE | 2023-06-02 06:12 | Electrocardiogram Report ---
Test Reason : Blood Pressure : / mmHG Vent. Rate : 044 BPM Atrial Rate : 112 BPM P-R Int : 000 ms QRS Dur : 170 ms QT Int : 618 ms P-R-T Axes : 061 259 102 degrees QTc Int : 528 ms Sinus tachycardia with A-V dissociation and ventricular escape rhythm Right bundle branch block Septal infarct , age undetermined T wave abnormality, consider lateral ischemia Abnormal ECG When compared with ECG of 02-MAY-2023 22:28, Vent. rate has increased BY 15 BPM Confirmed by Tato Carson ([id number]) on 06/02/2023 6:12:02 AM Referred By: REFERRED SELF Confirmed By:Tato Carson
--- NOTE | 2023-06-02 08:28 | Communication Note ---
Date of Service: June 02, 2023 I was called to patients bedside to pronounce patient as . No spontaneous movements were present. There was no response to verbal or tactile stimuli. Pupils were mid-dilated and fixed. No carotid pulses were palpable. No heart sounds were auscultated over entire precordium. No breath sounds were heard. Patient was DNR at time of . Time of was 0820 on 06/02/2022. General: unresponsive, no spontaneous movements, no response to verbal or tactile stimuli. Eyes: pupils fixed and dilated, corneal reflexes absent. CV: no heart sounds, no carotid pulses. Lungs: no breath sounds, no chest wall motion. Extremities: absent distal pulses
--- NOTE | 2023-06-02 08:35 | Discharge Summary ---
Discharge Summary Date of Service June 02, 2023 Notes For Next Care Provider Medication Changes From Visit . Admission HPI Per Admitting Provider This is a 67 yr old incarcerated M who presents to ED after being found unresponsive at senior care surrounded by pool of vomit. Hx obtained from pre hospital paperwork and ED provider. Of significance pt recently hospitaled 05/02 at [facility] after being initially evaluated at [facility] 2/2 syncope, fall, L rib fractures, L hemothorax s/p chest tube placement. He was seen in [facility] and remained stable. CT was removed prior to d/c. He has a known CHB that he has refused PPM. This was evident from hospital discharge paperwork from [facility] as he refused a pacer at that time. Pt has specific advanced directive in paperwork stating he is a DNR/DNI and he does not want any mechanical ventilation/procedure/tube feeds. He is ok with IVF and IV antibiotics. When he presented to ED today he was unresponsive and significant hypoxic despite non rebreather. A bipap was placed. Imaging concerning for an aspiration pneumonia. He was started on IV Zosyn and IVF. At beside pt was able to open eyes and answer simple questions. He states he passed out which caused him to fall. This is why he presented to ED previously in setting of syncope. ROS otherwise unobtainable. Nursing reports kiley abnormality to L tibial surface. Guards at bedside unable to provide any additional information. Admission Exam Per Admitting Provider Attending addendum; The patient was seen and examined in the emergency room He was brought in with syncopal episode Has complete heart block. Principal Dx & Hospital Course #1 = Principal Diagnosis (1) Acute hypoxic respiratory failure: (2) Sepsis: (3) Aspiration pneumonia: (4) Metabolic encephalopathy: (5) Hyperglycemia: (6) Elevated troponin: (7) DNI (do not intubate): Plan Mr. Perez is a 67 yr old incarcerated male who was admitted for NSTEMI management iso of complete heart block. Patient transitioned to comfort care measures after long discussion with palliative care on 06/01. Upon ambulating to bathroom, patient subsequently collapsed. Officers at bedside were able to assist patient to bed at which time he was unresponsive. exam performed, pronouced patient on 06/02 at 0820. 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 #NSTEMI repeat @ 2hrs is 731.4, initially 300 pt does not report CP likely demand in setting of sepsis, resp failure will repeat ecg, obtain echo, consult cardiology appreciate palliative input regarding role of heparin in setting of his advance directives, will continue for now until able to communicate with patient -Patient declined further heparin #Hyperglycemia admitting bsg in 200s no hx of t2dm recorded #Acute circulatory failure 2/2 Complete Heart Block pt with known heart block presents with syncope in past, declines PPM 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 Eyes: pupils fixed and dilated, corneal reflexes absent. CV: no heart sounds, no carotid pulses. Lungs: no breath sounds, no chest wall motion. Extremities: absent distal pulses Updated Medication List Medication Instructions Recorded Confirmed Type Therapeutic Tar Shampoo 1 applic topical 3XWK 05/02/23 06/01/23 History aspirin 81 mg chewable tablet 81 mg PO DAILY 05/02/23 06/01/23 History azelastine 137 mcg (0.1 %) nasal 2 spray intranasal DAILY 05/02/23 06/01/23 History spray aerosol calcium polycarbophil 625 mg 625 mg PO DAILY 05/02/23 06/01/23 History tablet (Fiber-Lax) cholecalciferol (vitamin D3) 25 25 mcg PO DAILY 05/02/23 06/01/23 History mcg (1,000 unit) capsule (Vitamin D3) propylene glycol 1 %-glycerin 0.3 1 drp OPB BID 05/02/23 06/01/23 History % eye drops (Advanced Eye Relief) saliva stimulant comb. no.3 2 spray mucous membrane TID PRN 05/02/23 06/01/23 History (Biotene Moisturizing Mouth Dry Mouth mucosal spray) docusate sodium 250 mg capsule 250 mg PO DAILY 06/01/23 06/01/23 History lisinopril 20 mg tablet 20 mg PO DAILY 06/01/23 06/01/23 History Hospital Stay Data Consultations 06/01/23 09:31 ED Decision to Admit Stat 06/01/23 09:36 Consult Palliative Care Routine Diagnostic Imagining Performed 06/01/23 08:06 CT abd pelvis IV con only Stat CT cervical spine wo con Stat CT chest diagnostic w con Stat CT head/brain wo con Stat Total Time Total Time Spent Total Time Spent (In Minutes): 55
== END 2023-06-02 10:45 | disposition expired | DRG 871 ==
LOC: ED 07:52 → EDINP 09:36 → SUATTDRO 09:36 → 3W 10:23
DX: Z66 Do not resuscitate; A41.9 Sepsis, unspecified organism; Z79.82 Long term (current) use of aspirin; Z79.899 Other long term (current) drug therapy; G93.41 Metabolic encephalopathy; R73.9 Hyperglycemia, unspecified; J96.01 Acute respiratory failure with hypoxia; Z51.5 Encounter for palliative care; J69.0 Pneumonitis due to inhalation of food and vomit; I21.4 Non-ST elevation (NSTEMI) myocardial infarction; R79.89 Other specified abnormal findings of blood chemistry; I44.2 Atrioventricular block, complete